=== PATIENT | female | born 1985 | race Caucasian/White ===

== ENCOUNTER 2017-09-12 14:19 | Day surgery (SDC) | payer OTHER ==
[2017-09-12 14:50] VITALS: BP 105/62; TEMP 98.8
[2017-09-12 14:51] VITALS: BMI 26.4
--- NOTE | 2017-09-12 23:28 | PRG ---
DATE OF SERVICE: 09/12/2017 TIME OF SERVICE: 1620 hours. PRESENTING COMPLAINT: Contractions. HISTORY OF PRESENT ILLNESS: Ms. Sow is a 32-year-old 2, para 1, at 38 and 1 weeks with an EDC of 09/25/2017. She is scheduled for primary in 6 days. She complains of contractions. No rupture of membrane. No leakage of fluid. OB AND TESTING LEAD HISTORY: She had a vacuum extraction delivery by Dr. Turcios in 2013 with an 8 pound 15 oun ce female with a second degree cervical lac and vaginal lac, requiring a revision. On later date, kelly white had delayed hemorrhage with 4 units of PRBCs and desires a primary at this magaly e. She also has a left ovarian cyst measuring 7 cm. It will be addressed at the time of her cesarea n section. Blood type is O positive, antibody negative, Pap negative, rubella immune, VDRL nonreacti ve, hepatitis B, GC chlamydia negative, group B strep negative. PAST MEDICAL HISTORY: None. PAST SURGICAL HISTORY: Obstetrical/gynecologic. ALLERGIES: Denies. MEDICATIONS: vitamins. SOCIAL HISTORY: Denies tobacco, alcohol, or drug abuse. FAMILY HISTORY: Noncontributory. REVIEW OF SYSTEMS: Noncontributory. OBJECTIVE: GENERAL: White female, not in acute distress, does not seem to be in active labor just by observatio n. VITAL SIGNS: Temperature 98.6, respirations 18, blood pressure 110/72, pulse 85. HEENT: Within normal limits. LUNGS: Clear to auscultation bilaterally. HEART: Regular rate and rhythm. ABDOMEN: Soft and nontender with contractions every 5 minutes. A fundal height of 38 cm. FHT s 120s to 130s. PELVIC: Vulva without lesions. Vagina without discharge. Cervix is 125 -2 anterior cephalic bulgin g bag of water. This was noted to have not changed over an hour. EXTREMITIES: Without clubbing, cyanosis or edema. heart rate tracing was carried out for over an hour, which was category 1 with 120-130 baseline , positive accelerations, no decelerations. IMPRESSION: The patient with scheduled primary section secondary to obstetric laceration wi th uterine irritability with no evidence of active labor. PLAN: Reassurance, discharge home. ER precautions, scheduled in 6 days.
== END 2017-09-12 16:28 | disposition home or self-care (01) ==
LOC: L&D/OP 14:19
PROVIDERS: ATTEND Obstetrics & Gynecology
DX: O47.1 False labor at or after 37 completed weeks of gestation (principal); Z3A.38 38 weeks gestation of pregnancy; Z79.899 Other long term (current) drug therapy

== ENCOUNTER 2017-09-18 06:54 | Inpatient (IN) | payer OTHER ==
[2017-09-18] MEDS ORDERED: CEFAZOLIN/Water 2 GM/20 ML SYRINGE SLOW IVP SCH (09:00)
[2017-09-18] MEDS ORDERED: Bicitra 30 ML UDCUP PO SCH (09:00)
[2017-09-18] MEDS ORDERED: Ondansetron HCl/PF 4 MG/2 ML Vial IVP PRN ×2 (09:02→17:14)
[2017-09-18] MEDS ORDERED: Promethazine HCl 25 MG/ML VIAL IM PRN ×2 (09:02→17:14)
--- NOTE | 2017-09-18 09:05 | PDOC.LDHP ---
Labor and Delivery H&P Chief complaint: scheduled section HPI: 32 y/o WF at 39 weeks. H/o complicated vaginal delivery in the past with laceration and pph. Desires primary c/s ...She has also been followed for left adnexal cyst -7.64x 4.78 x 7.34 cm--simple. has remained stable and asymptomatic. Current gestational age (weeks): 39 Due date: 09/26/19 Grav: 2 Para: 1 Current complications: other Abnormal US findings: No Current medications: pre-lamar vitamins Allergies/Adverse Reactions: Allergies Allergy/AdvReac Type Severity Reaction Status Date / Time No Known Drug Allergies Allergy Verified 12/08/13 01:14 - OB Labs Blood type: O RH: positive Antibody Screen: negative HIV: negative RPR: negative HEPSAg: negative 1 hour GCT: negative GBS: negative Urine drug screen: not done Rubella: immune - Assessment L&D Assessment: scheduled primary section - Plan Plan: admit to L&D, to OR for section (will also prerform cystectomy vs LSO pending intraoperative findings.)
[2017-09-18] MEDS: Lactated Ringer's 1,000 ML IV SCH ×2 (10:45→23:01)
[2017-09-18] MEDS ORDERED: Oxytocin 10 UNITS/ML VIAL ONE (10:57)
[2017-09-18 10:58] LABS: Hemoglobin 12.3 g/dL (12.0-16.0); Mean Corpuscular HGB CONC 34.2 g/dL (32.0-36.0); Mean Corpuscular Hemoglobin 30.3 pg (27.0-31.0); Mean Corpuscular Volume 88.8 fl (81.0-99.0); Mean Platelet Volume 8.6 fL (7.4-10.4); Platelet Count 200 thou/uL (130-400); RBC Distribution Width 12.2 % (11.5-14.5); Red Blood Cell (RBC) Count 4.06 mill/uL (4.20-5.40); White Blood Cell (WBC) Count 9.6 thou/uL (4.8-10.8)
[2017-09-18] MEDS ORDERED: Morphine PF 1 MG/ML SYR ONE (10:58)
[2017-09-18] MEDS ORDERED: ePHEDrine/0.9% NaCl/PF SYRINGE 50 mg/10 ml ONE ×2 (10:58→13:43)
[2017-09-18] MEDS ORDERED: Ondansetron HCl/PF 4 MG/2 ML Vial ONE ×3 (10:58→14:52)
[2017-09-18] MEDS ORDERED: Ketorolac Tromethamine 30 MG/ML VIAL ONE ×2 (10:58→13:43)
[2017-09-18 10:59] VITALS: BMI 26.6
[2017-09-18] MEDS ORDERED: diphenhydrAMINE 25 MG CAP PO PRN (11:33)
[2017-09-18] MEDS ORDERED: Bisacodyl 10 MG SUPP PR PRN (11:33)
[2017-09-18] MEDS ORDERED: traMADol HCl 50 MG TAB PO PRN ×2 (11:34)
--- NOTE | 2017-09-18 11:36 | PDOC.OPDEL ---
OB Operative/Delivery Note Delivery Dr/Surgeon: Betzy Assist: Ghanshyam Pre-Delivery Diagnosis: scheduled section, other (7 cm left adnexal cyst) Procedure/Post Delivery Dx: primary low transverse CS Weeks gestation: 39 Anesthesia: spinal
[2017-09-18 11:39] LABS: HBSAg Index 0.16 S/CO (0-0.99); Hep B Surf Ag Non-Reactive S/CO (NonReactive); Syphilis Antibody Nonreactive (Nonreactive); Syphilis Antibody Index 0.04 S/CO (<1.00 Non-Reactive)
[2017-09-18] MEDS ORDERED: LR w/ Pitocin 40 units/1000 ML BAG IV SCH (11:45)
[2017-09-18] MEDS ORDERED: Fentanyl 100 MCG/2 ML VIAL ONE ×2 (12:12→12:22)
[2017-09-18] MEDS ORDERED: Morphine 10 MG/ML VIAL ONE (14:51)
[2017-09-18] MEDS ORDERED: Morphine 2 MG/ML SYRINGE SLOW IVP PRN (15:12)
[2017-09-18] MEDS: Ibuprofen 800 MG TAB PO SCH ×2 (16:10→22:19)
[2017-09-18] MEDS ORDERED: Morphine 5 MG/ML SYRINGE SLOW IVP PRN (16:45)
--- NOTE | 2017-09-18 17:03 | OP ---
DATE OF SERVICE: 09/18/2017 PRIMARY SURGEON: Dr. Yumiko Bo. This is just documentation that I, Dr. Mich Odom, was tmd teacher assistant on a primary C-sectio n with a left salpingo-oophorectomy. For complete details, please refer to Dr. Bo's note.
[2017-09-18] MEDS ORDERED: diphenhydrAMINE 50 MG/ML VIAL IVP PRN (17:14)
[2017-09-18] MEDS ORDERED: Naloxone HCl 0.4 mg/ml Vial IV PRN (17:14)
[2017-09-18] MEDS ORDERED: Naloxone HCl 0.4 mg/ml Vial IVP PRN ×2 (17:14)
[2017-09-18] MEDS ORDERED: Promethazine HCl 25 MG SUPP PR PRN (17:14)
[2017-09-18] MEDS ORDERED: Eucerin (Mineral Oil/Petrolatum,White) 30 gm Jar TOP PRN (17:14)
[2017-09-18] MEDS ORDERED: Communication Order-Pharmacy FS SCH (17:15)
--- NOTE | 2017-09-18 17:40 | OP ---
DATE OF PROCEDURE: 09/18/2017 PREOPERATIVE DIAGNOSES: 1. A 32-year-old white female G2, P1 at 39 weeks' gestation. 2. Prior history of complicated vaginal delivery with hemorrhage laceration, desiring esteban manuel section delivery. 3. A 7 x 7 cm left adnexal cyst. POSTOPERATIVE DIAGNOSES: 1. A 32-year-old white female G2, P1 at 39 weeks' gestation. 2. Prior history of complicated vaginal delivery with hemorrhage laceration, desiring esteban manuel section delivery. 3. A 7 x 7 cm left adnexal cyst. PROCEDURE PERFORMED: 1. Primary low transverse section without extension. 2. Left salpingo-oophorectomy. SURGEON: Yumiko Bo M.D. CLAIM MANAGER: Chon Odom M.D. ANESTHESIA: Spinal block. ESTIMATED BLOOD LOSS: 1000 mL COMPLICATIONS: None. COUNTS: Correct x2. ANTIBIOTICS: Two grams Ancef relationship management lead to OR. FINDINGS: 1. Normal appearing right fallopian tube and ovary. 2. Left ovary was deflated large approximately 7 cm of cyst and with some ongoing bleeding in the me sosalpinx during operative manipulation. 3. Clear urine present in Gonzalez catheter post procedure. DISPOSITION: To the recovery room, stable. PATHOLOGY: Left fallopian tube and ovary. DESCRIPTION OF OPERATIVE PROCEDURE: The patient previously received informed consent in regards to reynaldo mohr. She was taken back to the operating room where she received a spinal block anesthetic agent without complications, placed in supine position, prepped and draped in usual sterile fashion. Gonzalez catheter and PlexiPulses were placed during the prep process. Once her spinal anesthetic agent was confirmed to be adequate, a Pfannenstiel incision was made through the abdomen down the fascia. Fasc ia nicked in midline. Fascial incision was extended bilaterally with the use of curved Kumar scissors . The rectus muscle bellies were divided in the midline. The peritoneal cavity was entered. Horacio O retractor was then placed. The uterus was inspected and a 2 cm hysterotomy incision was made abov e the vesicouterine peritoneal reflection. Hysterotomy incision was extended via finger fractionatio n. Baby was delivered in the vertex presentation. The mouth and nares were bulb suctioned on the ab domen. Cord was doubly clamped and cut and handed to the property insurance agent, Dr. Akers who [facility]. The usual cord blood was obtained. Placenta was manually extracted. The uterine hysterotomy incision was then closed with running locking fashion with #1 Monocryl suture. Additional figure-of- eight sutures #1 Monocryl were also placed in the mid portion of the hysterotomy incision line for he mostasis. There was some bleeding in the left angle of the hysterotomy incision and additional figur e-of-eight stitches were placed there with #1 chromic securing hemostasis. The uterus was then exter nalized and the left adnexal findings were noted. There was some bleeding in the mesosalpinx, which was then attempted to be controlled with placing stick ties, but continued bleeding was noted and als o bleeding along the left tube and the paraovarian tissue and their decision was made to remove the e ntire ovary, not just the cyst. Two Jacqueline clamps were then placed; one on the left infundibulopelvi c ligament, the remainder along the mesosalpinx line medial on the utero-ovarian ligament. These wer e clamped, cut, and then these pedicles were suture ligated with #1 chromic suture. Double stick tie was placed on the IP ligament and then there was continued bleeding over the right medial pedicle an d there a running locking fashion stitch running along the mesosalpinx line was carried out which ach ieved hemostasis. The pelvis again was irrigated and suctioned and all the pedicle sites were noted to be hemostatic. The uterus returned back in the abdomen. Again, pedicle sites inspected and hemos tasis confirmed. Pelvis was irrigated copiously. Counts were correct after counting for all the spo nges and inspection of the pelvis and abdomen. The rectus muscle bellies were noted to be hemostatic and the fascia was then closed with 0 PDS suture x2 in running continuous fashion. Subcutaneous tis kandice was noted to be hemostatic after cautery and irrigation. The skin was closed with darnell. Surg carlos manuel was terminated. No anesthetic or surgical complications.
[2017-09-18] MEDS: Docusate Calcium (SURFAK) 240 MG CAP PO SCH (21:14)
[2017-09-18] MEDS: Ketorolac Tromethamine 30 MG/ML VIAL IVP PRN (21:18)
[2017-09-18] MEDS: Ferrous Sulfate 325 MG TAB PO SCH (22:19)
[2017-09-18] MEDS ORDERED: Lanolin Ointment 7 GM TUBE TOP PRN (22:52)
[2017-09-19] MEDS: Simethicone Chewable 80 MG TAB PO PRN ×4 (03:10→20:20)
[2017-09-19] MEDS: Ketorolac Tromethamine 30 MG/ML VIAL IVP PRN (03:11)
[2017-09-19] MEDS ORDERED: traMADol HCl 50 MG TAB PO PRN ×2 (05:15)
[2017-09-19 05:54] LABS: Hemoglobin 8.7 g/dL (12.0-16.0); Mean Corpuscular HGB CONC 33.3 g/dL (32.0-36.0); Mean Corpuscular Hemoglobin 29.9 pg (27.0-31.0); Mean Corpuscular Volume 89.9 fl (81.0-99.0); Mean Platelet Volume 8.4 fL (7.4-10.4); Platelet Count 151 thou/uL (130-400); RBC Distribution Width 12.1 % (11.5-14.5); Red Blood Cell (RBC) Count 2.91 mill/uL (4.20-5.40)
[2017-09-19] MEDS: Ibuprofen 800 MG TAB PO SCH ×3 (06:39→18:56)
[2017-09-19] MEDS: Prenatal Vitamin 1 TAB PO SCH (07:51)
[2017-09-19] MEDS: Docusate Calcium (SURFAK) 240 MG CAP PO SCH ×2 (07:52→20:19)
[2017-09-19] MEDS: Ferrous Sulfate 325 MG TAB PO SCH ×2 (07:55→20:19)
--- NOTE | 2017-09-19 08:05 | PRG ---
DATE OF SERVICE: 09/19/2017 PRIMARY OB: Dr. Yumiko Bo HISTORY OF PRESENT ILLNESS: The patient is postop day 1, status post a primary with RSO du e to ovarian cyst and uncontrolled bleeding in the mesosalpinx. The patient reports today that she i s tolerating liquids and soup. She is having decent pain control, is ambulating, has been able to vo id with her Gonzalez catheter removed last night and having decreased lochia. OBJECTIVE: VITAL SIGNS: Blood pressure 93/51, temperature 98.5, pulse is 79, respiratory rate of 18. GENERAL: She appears to be in no acute distress. She is alert and oriented, cooperative and pleasan t to interact with. HEENT: Normocephalic, atraumatic. ABDOMEN: Fundus is difficult to find, but is well below the umbilicus. Her incision is covered wit h Aquacel. Her hemoglobin is 8.7, hematocrit 26.2 down from 12.3, which was appropriate for 1000 mL b lood loss estimated. ASSESSMENT AND PLAN: The patient is postop day 1, status post a primary with right salping o oophorectomy. Anticipate discharge in 2-3 days.
[2017-09-19] MEDS ORDERED: Adacel (T-DAP) 0.5 ML VIAL IM ONE (09:00)
[2017-09-19] MEDS: HYDROcodone/Acetaminophen 5/325 mg Tablet PO PRN ×2 (15:38→20:19)
[2017-09-20] MEDS: HYDROcodone/Acetaminophen 5/325 mg Tablet PO PRN ×3 (02:31→12:13)
[2017-09-20] MEDS: Ibuprofen 800 MG TAB PO SCH ×2 (02:31→09:27)
--- NOTE | 2017-09-20 05:54 | PDOC.PP ---
Post Progress Note Post Day #: 2 Subjective: Doing well, had flatus this AM and last evening. PO intake tolerated: yes Flatus: yes Ambulation: yes Vital Signs (12 hours) Temp Pulse Resp BP 09/20/17 03:17 98.1 F 93 16 98/54 L 09/20/17 03:15 98.1 F 93 16 09/19/17 23:30 98.1 F 85 16 100/49 L 09/19/17 20:00 97.9 F 81 16 100/54 L Weight Weight 170 lb - Physical Examination General: NAD Cardiovascular: no m/r/g Respiratory: clear to auscultation bilaterally Abdominal: + bowel sounds, no distention, appropriately TTP (Incision C/D/I with darnell in place) Extremities: negative homans (B) Skin: CS incision dry & intact Neurological: no gross focal deficits Psychiatric: A&Ox3, normal affect Result Diagrams: 09/19/17 05:25 Additional Labs: Post Labs Blood Type O POSITIVE 09/18/17 10:50 Hep Bs Antigen Non-Reactive S/CO (NonReactive) 09/18/17 10:50 (1) Delivery by elective section Code(s): O82 - ENCOUNTER FOR DELIVERY WITHOUT INDICATION Status: Acute (2) S/P left oophorectomy Code(s): Z90.721 - ACQUIRED ABSENCE OF OVARIES, UNILATERAL Status: Acute - Assessment/Plan Plan: Postop day 2 doing well s/p primary CS and LSO. Has had spontaneous return of flatus. I discussed with the patient discharge today and she feels ok for [facility]. We will send home with Wilfredo and limited number of kristian (#10). Incision with darnell, and told to have them rtemoved by next (POD 7). POstop care reviewed.
--- NOTE | 2017-09-20 06:10 | PDOC.EVN ---
Event Note - Event Note Event Note: DISCHARGE NOTE Admit date: 09/18/17 Discharge date: 09/20/17 Procedure: primary LTCS with LSO Surgeons: Betzy and Ilene I evaluated the patient POD2 and cleared her for discharge. Incision was C/D/I. Karla in place. Flatus had been passed. Home meds: Motrin/Ulram (limited to 10). Hct 26.2 Karla out next thrusday, POD 7.
[2017-09-20] MEDS: Docusate Calcium (SURFAK) 240 MG CAP PO SCH (08:15)
[2017-09-20] MEDS: Prenatal Vitamin 1 TAB PO SCH (08:15)
[2017-09-20] MEDS: Ferrous Sulfate 325 MG TAB PO SCH (08:15)
[2017-09-20 09:21] VITALS: TEMP 98.3
[2017-09-20 09:22] VITALS: BP 100/52
== END 2017-09-20 12:35 | disposition home or self-care (01) | DRG 766 ==
LOC: L&D 10:05 → 3SW 15:37
PROVIDERS: ADMIT Obstetrics & Gynecology; ATTEND Obstetrics & Gynecology
PROC: 10D00Z1 Extraction of Products of Conception, Low, Open Approach (ICD-10-PCS; principal; 2017-09-18)
PROC: 0UT60ZZ Resection of Left Fallopian Tube, Open Approach (ICD-10-PCS; 2017-09-18)
PROC: 0UT10ZZ Resection of Left Ovary, Open Approach (ICD-10-PCS; 2017-09-18)
DX: O34.63 Maternal care for abnormality of vagina, third trimester (principal); O34.83 Maternal care for other abnormalities of pelvic organs, third trimester; N83.202 Unspecified ovarian cyst, left side; Z37.0 Single live birth; Z3A.39 39 weeks gestation of pregnancy
CPT/HCPCS: 36415; 51702; 85027; 86780; 86850; 86900; 86901; 87340; 88304; 88307; J2270; J1885; J2274; J2405; J2590; J3010